=== PATIENT | female | born 1965 | race Caucasian/White ===

== ENCOUNTER 2018-07-15 21:24 | Inpatient (IN) | payer MEDICAID, OTHER, SELFPAY ==
[~2018-07-15] VITALS: Ht 142.2 cm; Wt 90.7 kg
[~2018-07-15 21:24] MED LIST: BENA40TA9 PO; IBUP-2028 PO; MULT-1146 PO; NIFE60TA64 PO
[2018-07-15] MEDS ORDERED: LORAZEPAM 2MG/ML CPJ IV ONE (21:45)
[2018-07-15] MEDS ORDERED: LABETALOL 5MG/ML SYR 20 MG/4 ML SYRINGE IV PRN (22:00)
[2018-07-15 22:45] LABS: BASOPHILS % 0.3 % (0.0-2.0); EOSINOPHILS % 0.1 % (0.0-5.0); HEMATOCRIT. 42.3 % (36.0-48.0); HEMOGLOBIN. 14.4 g/dL (12.0-16.0); MEAN CORPUSCULAR HEMOGLOBIN 28.8 pg (28.0-32.0); MEAN CORPUSCULAR VOLUME 84.7 fL (81.0-99.0); MEAN PLATELET VOLUME 8.2 fl (7.4-10.4); MONOCYTES % 6.4 % (2.0-8.0); NEUTROPHILS % 81.2 % (40.0-76.0); PLATELET 370 x1000/uL (130-400); RED CELL DISTRIBUTION WIDTH 12.6 % (11.6-14.6)
[2018-07-15 22:51] LABS: CHLORIDE 90 mEq/L (98-107)
[2018-07-15 22:53] LABS: PROTHROMBIN TIME 10.2 sec (9.1-11.1)
[2018-07-15 22:55] LABS: ETHANOL BLOOD < 10 mg/dL
[2018-07-15 22:58] LABS: LDL CHOLESTEROL 197 mg/dL (5-100)
[2018-07-15 22:59] LABS: CREATINE KINASE 57 IU/L (26-192)
[2018-07-15] MEDS ORDERED: SODIUM CHLORIDE 0.9% 1000ML BAG (SEPSIS BOLUS) IV ONE (23:15)
[2018-07-16] VITALS (8 sets, daily range): BP systolic 139–199; BP diastolic 66–107
[2018-07-16] MEDS ORDERED: ACETAMINOPHEN 325MG TABLET PO PRN (00:30)
[2018-07-16] MEDS ORDERED: HYDROCODONE/ACETAMINOPHEN 10/325MG TABLET PO PRN (00:30)
[2018-07-16] MEDS ORDERED: DIPHENHYDRAMINE 50MG/ML VIAL IV PRN (00:30)
[2018-07-16] MEDS ORDERED: DOCUSATE SODIUM 100MG CAPSULE PO PRN (00:30)
[2018-07-16] MEDS ORDERED: IPRATROPIUM/ALBUTEROL 0.5-3(2.5)MG/3ML NEB INH PRN (00:30)
[2018-07-16] MEDS ORDERED: HYDROMORPHONE HCL/PF 2MG/ML CPJ IV PRN (00:30)
[2018-07-16] MEDS ORDERED: ONDANSETRON HCL 4MG/2ML INJ IV PRN (00:30)
[2018-07-16] MEDS ORDERED: MAGNESIUM/ALUMINUM HYDROXIDE/SIMETHICONE 30ML UDC PO PRN (00:30)
[2018-07-16] MEDS ORDERED: LORAZEPAM 2MG/ML CPJ IV PRN (00:30)
[2018-07-16] MEDS ORDERED: GUAIFENESIN 200MG/10ML SUGAR FREE UDC PO PRN (00:30)
[2018-07-16] MEDS ORDERED: LEVOFLOXACIN 500MG PREMIX 100 ML IV SCH (00:30)
[2018-07-16] MEDS ORDERED: LABETALOL 5MG/ML SYR 20 MG/4 ML SYRINGE IV ONE (01:30)
[2018-07-16] MEDS ORDERED: ASPIRIN 325MG EC TABLET PO ONE (01:45)
[2018-07-16 01:48] LABS: CLARITY URINE CLEAR (CLEAR); COLOR URINE YELLOW (YELLOW); KETONES URINE NEGATIVE (NEGATIVE); LEUKOCYTE ESTERASE URINE NEGATIVE (NEGATIVE); NITRITE URINE NEGATIVE (NEGATIVE); OCCULT BLOOD URINE NEGATIVE (NEGATIVE); PH URINE 5.5 (4.5-8.0); PROTEIN URINE 4+ (NEGATIVE); SPECIFIC GRAVITY URINE 1.061 (1.005-1.030)
[2018-07-16 02:02] LABS: *AMPHETAMINES SCREEN URINE NEGATIVE (NEGATIVE); *BARBITURATES SCREEN URINE NEGATIVE (NEGATIVE); *BENZODIAZEPINES SCREEN URINE NEGATIVE (NEGATIVE); *COCAINE SCREEN URINE NEGATIVE (NEGATIVE)
[2018-07-16 02:03] LABS: CANNABINOID URINE SCREEN NEGATIVE (NEGATIVE); METHADONE URINE SCREEN NEGATIVE (NEGATIVE); OPIATES URINE SCREEN NEGATIVE (NEGATIVE); PHENCYCLIDINE URINE SCREEN NEGATIVE (NEGATIVE)
[2018-07-16] MEDS ORDERED: HYDRALAZINE 20MG/ML VIAL IV ONE (02:15)
[2018-07-16] MEDS ORDERED: IOHEXOL-350 100 ML BOTTLE ONE (02:48)
[2018-07-16] MEDS ORDERED: LEVOFLOXACIN 500MG PREMIX 100 ML IV NR (04:15)
[2018-07-16 07:16] LABS: CREATINE KINASE 58 IU/L (26-192)
[2018-07-16 07:17] LABS: CREATINE KINASE MB FRACTION < 1.0 ng/mL (0.5-3.6)
[2018-07-16] MEDS ORDERED: ASPIRIN 325MG EC TABLET PO NR (09:00)
[2018-07-16] MEDS ORDERED: HYDRALAZINE 20MG/ML VIAL IV PRN ×2 (09:00→12:00)
[2018-07-16] MEDS: ENOXAPARIN 30MG/0.3ML SYR SUBCUT SCH ×2 (11:41→20:11)
[2018-07-16] MEDS: SODIUM CHLORIDE 0.9% INJ 3ML FLUSH IVF SCH ×2 (14:00→20:53)
[2018-07-16 15:43] LABS: CREATINE KINASE 58 IU/L (26-192)
[2018-07-16 15:44] LABS: CREATINE KINASE MB FRACTION < 1.0 ng/mL (0.5-3.6)
[2018-07-16] MEDS: CLONIDINE 0.1MG TABLET PO PRN (20:53)
[2018-07-17] VITALS (7 sets, daily range): BP systolic 122–162; BP diastolic 67–90
[2018-07-17] MEDS ORDERED: LEVOFLOXACIN 500MG PREMIX 100 ML IV SCH (04:00)
[2018-07-17] MEDS: SODIUM CHLORIDE 0.9% INJ 3ML FLUSH IVF SCH (05:10)
[2018-07-17 06:39] LABS: BASOPHILS % 0.3 % (0.0-2.0); EOSINOPHILS % 0.1 % (0.0-5.0); HEMATOCRIT. 40.1 % (36.0-48.0); HEMOGLOBIN. 13.5 g/dL (12.0-16.0); LYMPHOCYTES % 15.5 % (20.0-50.0); MEAN CORPUSCULAR VOLUME 86.3 fL (81.0-99.0); MONOCYTES % 7.6 % (2.0-8.0); NEUTROPHILS % 76.5 % (40.0-76.0); PLATELET 313 x1000/uL (130-400); RED BLOOD CELL COUNT 4.65 mill/uL (4.2-5.4); RED CELL DISTRIBUTION WIDTH 12.8 % (11.6-14.6)
[2018-07-17] MEDS: CLONIDINE 0.1MG TABLET PO PRN (06:45)
[2018-07-17 07:55] LABS: CHLORIDE 93 mEq/L (98-107)
[2018-07-17 08:05] LABS: LDL CHOLESTEROL 182 mg/dL (5-100)
[2018-07-17 08:07] LABS: HDL CHOLESTEROL 62 mg/dL (40-59); T4 FREE 1.06 ng/dL (0.76-1.46)
[2018-07-17 08:09] LABS: VITAMIN B12 SERUM 735 pg/mL (211-911)
[2018-07-17] MEDS: ENOXAPARIN 30MG/0.3ML SYR SUBCUT SCH (08:20)
[2018-07-17] MEDS ORDERED: ASPIRIN 81MG EC TABLET PO SCH (09:00)
[2018-07-17] MEDS ORDERED: POTASSIUM CHLORIDE 20MEQ TABLET SR PO NR (10:45)
== END 2018-07-17 12:52 | disposition home or self-care (01) | DRG 52 ==
LOC: ER 21:24 → 3WST 23:14 → EDBEDREQ 23:16 → ENRESERV 07-16 00:20 → EDBEDREQSVC 07-16 03:49 → EDBEDREQDT 07-16 03:49 → EDBEDREQTM 07-16 03:49 → 3WST 07-16 04:00 → UNDOADMIN 07-16 04:00 → 3WST 07-16 10:48
PROVIDERS: ADMIT Internal Medicine; ATTEND Internal Medicine
DX: I67.4 Hypertensive encephalopathy (principal); E66.01 Morbid (severe) obesity due to excess calories; E78.00 Pure hypercholesterolemia, unspecified; E78.5 Hyperlipidemia, unspecified; I10 Essential (primary) hypertension; Z68.42 Body mass index [BMI] 45.0-49.9, adult; Z86.73 Personal history of transient ischemic attack (TIA), and cerebral infarction without residual deficits
CPT/HCPCS: 36415; 70496; 70498; 70544; 70553; 71045; 71260; 80061; 80305; 82550; 82553; 82607; 82962; 83605; 83721; 84439; 84443; 84484; 93005; 93306; 96361; 96374; 96375; 96376; 97162; 99291; G0482; J0360; J1650; J1956; J2405; J3490; J7040; J7050; Q9967

== ENCOUNTER 2018-07-20 23:21 | Inpatient (IN) | payer OTHER, SELFPAY ==
[~2018-07-20] VITALS: Ht 142.2 cm; Wt 89.8 kg
[2018-07-20] MEDS ORDERED: METOPROLOL TARTRATE 5MG/5ML VIAL IV STA (23:49)
[2018-07-20] MEDS ORDERED: ONDANSETRON HCL 4MG/2ML INJ IV STA (23:49)
[2018-07-21] VITALS (10 sets, daily range): BP systolic 115–141; BP diastolic 56–86
[2018-07-21] MEDS ORDERED: ASPIRIN 81MG TABLET PO ONE
[2018-07-21 00:54] LABS: BASOPHILS % 0.6 % (0.0-2.0); EOSINOPHILS % 2.2 % (0.0-5.0); HEMATOCRIT. 40.8 % (36.0-48.0); HEMOGLOBIN. 13.7 g/dL (12.0-16.0); LYMPHOCYTES % 21.6 % (20.0-50.0); MEAN CORPUSCULAR HEMOGLOBIN 29.1 pg (28.0-32.0); MEAN CORPUSCULAR VOLUME 86.5 fL (81.0-99.0); MEAN PLATELET VOLUME 8.5 fl (7.4-10.4); MONOCYTES % 6.8 % (2.0-8.0); NEUTROPHILS % 68.8 % (40.0-76.0); PLATELET 331 x1000/uL (130-400); RED BLOOD CELL COUNT 4.71 mill/uL (4.2-5.4); RED CELL DISTRIBUTION WIDTH 12.6 % (11.6-14.6)
[2018-07-21 00:59] LABS: CHLORIDE 99 mEq/L (98-107)
[2018-07-21 01:01] LABS: PROTHROMBIN TIME 10.3 sec (9.1-11.1)
[2018-07-21] MEDS ORDERED: DILTIAZEM HCL 5MG/ML 5ML VIAL IV SCH (01:45)
[2018-07-21] MEDS ORDERED: DILTIAZEM HCL 125 MG in DEXT 5% WATER 100 ML IV ONE (02:45)
[2018-07-21] MEDS ORDERED: POTASSIUM CHLORIDE 20MEQ TABLET SR PO SCH (04:15)
[2018-07-21] MEDS ORDERED: MORPHINE SULFATE 4 MG/ML CPJ (NOT FOR IM USE) IV PRN (06:30)
[2018-07-21] MEDS: NITROGLYCERIN OINT 1GM/INCH UDPKT TD SCH ×3 (07:23→21:39)
[2018-07-21] MEDS ORDERED: DILTIAZEM HCL 125 MG in DEXT 5% WATER 100 ML IV SCH (08:00)
[2018-07-21] MEDS: ASPIRIN 325MG EC TABLET PO SCH (08:02)
[2018-07-21] MEDS: METOPROLOL TARTRATE 50MG TABLET PO SCH ×2 (08:03→21:35)
[2018-07-21] MEDS: ENOXAPARIN 100MG/ML SYR SUBCUT SCH ×2 (11:14→21:37)
[2018-07-21 11:32] LABS: CLARITY URINE CLEAR (CLEAR); COLOR URINE YELLOW (YELLOW); KETONES URINE NEGATIVE (NEGATIVE); LEUKOCYTE ESTERASE URINE NEGATIVE (NEGATIVE); NITRITE URINE NEGATIVE (NEGATIVE); OCCULT BLOOD URINE NEGATIVE (NEGATIVE); PH URINE 5.5 (4.5-8.0); PROTEIN URINE 2+ (NEGATIVE); SPECIFIC GRAVITY URINE 1.034 (1.005-1.030); UROBILINOGEN URINE 0.2 E.U./dL (0.2-1.0)
[2018-07-21 13:28] LABS: T4 FREE 1.25 ng/dL (0.76-1.46)
[2018-07-21] MEDS ORDERED: DEXTROSE 50% WATER 50ML SYRINGE IV PRN (14:00)
[2018-07-21 15:55] LABS: CREATINE KINASE MB FRACTION 4.1 ng/mL (0.5-3.6)
[2018-07-21] MEDS: BLOOD SUGAR DIAGNOSTIC STRIP TEST SCH ×2 (16:25→21:00)
[2018-07-21] MEDS: INSULIN LISPRO 100 UNITS/ML SUBCUT SCH ×2 (17:05→21:35)
[2018-07-21] MEDS ORDERED: WARFARIN SODIUM 7.5MG TABLET PO SCH (18:00)
[2018-07-21] MEDS ORDERED: WARFARIN SODIUM 2MG TABLET PO SCH (18:00)
[2018-07-21 23:45] LABS: CREATINE KINASE MB FRACTION 3.3 ng/mL (0.5-3.6)
[2018-07-22] VITALS (11 sets, daily range): BP systolic 131–169; BP diastolic 65–104
[2018-07-22] MEDS: NITROGLYCERIN OINT 1GM/INCH UDPKT TD SCH ×2 (06:23→15:38)
[2018-07-22] MEDS: BLOOD SUGAR DIAGNOSTIC STRIP TEST SCH ×3 (06:50→17:34)
[2018-07-22 07:47] LABS: BASOPHILS % 0.6 % (0.0-2.0); EOSINOPHILS % 1.9 % (0.0-5.0); HEMATOCRIT. 37.7 % (36.0-48.0); HEMOGLOBIN. 12.3 g/dL (12.0-16.0); LYMPHOCYTES % 24.7 % (20.0-50.0); MEAN CORPUSCULAR HEMOGLOBIN 28.6 pg (28.0-32.0); MEAN CORPUSCULAR VOLUME 87.6 fL (81.0-99.0); MONOCYTES % 4.6 % (2.0-8.0); NEUTROPHILS % 68.2 % (40.0-76.0); PLATELET 316 x1000/uL (130-400); RED BLOOD CELL COUNT 4.31 mill/uL (4.2-5.4); RED CELL DISTRIBUTION WIDTH 12.6 % (11.6-14.6)
[2018-07-22 07:53] LABS: INR 1.1; PROTHROMBIN TIME 11.2 sec (9.1-11.1)
[2018-07-22] MEDS: ASPIRIN 325MG EC TABLET PO SCH (08:11)
[2018-07-22] MEDS: METOPROLOL TARTRATE 50MG TABLET PO SCH (08:11)
[2018-07-22] MEDS: INSULIN LISPRO 100 UNITS/ML SUBCUT SCH ×3 (08:12→17:20)
[2018-07-22] MEDS: ENOXAPARIN 100MG/ML SYR SUBCUT SCH (08:13)
[2018-07-22 09:20] LABS: CHLORIDE 102 mEq/L (98-107)
[2018-07-22 09:29] LABS: CREATINE KINASE 59 IU/L (26-192)
[2018-07-22 09:31] LABS: CREATINE KINASE MB FRACTION 2.1 ng/mL (0.5-3.6)
[2018-07-22] MEDS ORDERED: REGADENOSON 0.4 MG/5 ML IV ONE ×2 (10:00→11:11)
[2018-07-22] MEDS ORDERED: WARFARIN SODIUM 7.5MG TABLET PO SCH (18:00)
== END 2018-07-22 19:27 | disposition home or self-care (01) | DRG 201 ==
LOC: ER 23:21 → 3WST 07-21 02:41 → EDBEDREQTM 07-21 02:44 → EDBEDREQDT 07-21 02:44 → EDBEDREQ 07-21 02:44 → EDBEDREQSVC 07-21 02:45 → ENRESERV 07-21 03:51
PROVIDERS: ADMIT Internal Medicine; ATTEND Internal Medicine
DX: I48.91 Unspecified atrial fibrillation (principal); I11.0 Hypertensive heart disease with heart failure; I50.32 Chronic diastolic (congestive) heart failure; E44.1 Mild protein-calorie malnutrition; E66.01 Morbid (severe) obesity due to excess calories; I48.92 Unspecified atrial flutter; E78.00 Pure hypercholesterolemia, unspecified; E78.5 Hyperlipidemia, unspecified; E87.6 Hypokalemia; F10.10 Alcohol abuse, uncomplicated; Z86.73 Personal history of transient ischemic attack (TIA), and cerebral infarction without residual deficits; Z91.19 Patient's noncompliance with other medical treatment and regimen; Z68.41 Body mass index [BMI] 40.0-44.9, adult
CPT/HCPCS: 36415; 71045; 78452; 80048; 82550; 82553; 82962; 83880; 84439; 84443; 84484; 93005; 93017; 96374; 96375; 99291; A9500; J1650; J1815; J2405; J2785; J3490; J7060